=== PATIENT | male | born 1950 | race Caucasian/White ===

== ENCOUNTER → 2016-05-16 | Outpatient (CLI) | payer BC, OTHER ==
[2016-05-16 18:09] LABS: HEMATOCRIT 41.8 % (42-52); MEAN CELL VOLUME 84.8 fL (80-100); MEAN CORPUSCULAR HEMOGLOBIN 28.8 pg (25-34); MEAN PLATELET VOLUME 10.6 fL (7.4-10.4); PLATELET COUNT 233 K/uL (130-400); RED BLOOD COUNT 4.93 M/uL (4.7-6.1); WHITE BLOOD COUNT 7.41 K/uL (4.8-10.8)
[2016-05-16 18:16] LABS: THYROID STIMULATING HORMONE 1.54 uIu/ml (0.300-4.500)
== END | disposition home or self-care (01) ==
LOC: C.LABMFLN 14:18
PROVIDERS: ATTEND Internal Medicine Cardiovascular Disease
DX: E05.00 Thyrotoxicosis with diffuse goiter without thyrotoxic crisis or storm (principal); E55.9 Vitamin D deficiency, unspecified

== ENCOUNTER → 2016-06-15 | Outpatient (CLI) | payer BC ==
[2016-06-15 18:08] LABS: THYROID STIMULATING HORMONE 2.33 uIu/ml (0.300-4.500)
== END | disposition home or self-care (01) ==
LOC: C.LABMFLN 11:49
PROVIDERS: ATTEND Internal Medicine Endocrinology, Diabetes & Metabolism
DX: E05.90 Thyrotoxicosis, unspecified without thyrotoxic crisis or storm (principal)

== ENCOUNTER → 2016-07-17 | Outpatient (CLI) | payer BC ==
[2016-07-17 18:34] LABS: THYROID STIMULATING HORMONE 0.996 uIu/ml (0.300-4.500)
== END | disposition home or self-care (01) ==
LOC: C.LABMFLN 07-18 13:39
PROVIDERS: ATTEND Internal Medicine Endocrinology, Diabetes & Metabolism
DX: E05.90 Thyrotoxicosis, unspecified without thyrotoxic crisis or storm (principal); E55.9 Vitamin D deficiency, unspecified

== ENCOUNTER → 2016-09-11 | Outpatient (CLI) | payer BC ==
[2016-09-11 18:10] LABS: THYROID STIMULATING HORMONE 0.326 uIu/ml (0.300-4.500)
== END | disposition home or self-care (01) ==
LOC: C.LABMFLN 14:49
PROVIDERS: ATTEND Internal Medicine Endocrinology, Diabetes & Metabolism
DX: E05.90 Thyrotoxicosis, unspecified without thyrotoxic crisis or storm (principal); E05.00 Thyrotoxicosis with diffuse goiter without thyrotoxic crisis or storm

== ENCOUNTER → 2016-10-25 | Outpatient (CLI) | payer BC ==
[2016-10-25 17:53] LABS: HEMATOCRIT 42.3 % (42-52); MEAN CELL VOLUME 89.6 fL (80-100); MEAN CORPUSCULAR HEMOGLOBIN 30.1 pg (25-34); MEAN CORPUSCULAR HGB CONC 33.6 g/dl (32-36); MEAN PLATELET VOLUME 10.7 fL (7.4-10.4); PLATELET COUNT 206 K/uL (130-400); RED BLOOD COUNT 4.72 M/uL (4.7-6.1); WHITE BLOOD COUNT 6.45 K/uL (4.8-10.8)
[2016-10-25 19:13] LABS: BLOOD UREA NITROGEN 14 mg/dl (7-18); BUN/CREATININE RATIO 12.8 (10-20); CALCIUM 8.9 mg/dl (8.5-10.1); CARBON DIOXIDE 24 mmol/L (21-32); CHLORIDE 106 mmol/L (98-107); GLUCOSE 88 mg/dl (70-99); SODIUM 140 mmol/L (136-145)
== END | disposition home or self-care (01) ==
LOC: C.LABMFLN 16:06
PROVIDERS: ATTEND Internal Medicine Cardiovascular Disease
DX: E55.9 Vitamin D deficiency, unspecified (principal); M85.80 Other specified disorders of bone density and structure, unspecified site; E05.90 Thyrotoxicosis, unspecified without thyrotoxic crisis or storm; I48.91 Unspecified atrial fibrillation

== ENCOUNTER → 2016-12-29 | Outpatient (CLI) | payer BC ==
[2016-12-29 18:04] LABS: THYROID STIMULATING HORMONE 3.37 uIu/ml (0.300-4.500)
== END | disposition home or self-care (01) ==
LOC: C.LABMFLN 16:38
PROVIDERS: ATTEND Internal Medicine Endocrinology, Diabetes & Metabolism
DX: E05.00 Thyrotoxicosis with diffuse goiter without thyrotoxic crisis or storm (principal); E55.9 Vitamin D deficiency, unspecified

== ENCOUNTER → 2017-01-17 | Outpatient (CLI) | payer BC ==
[~2017-01-17] MED LIST: OPTIRAY 320 IV PRN
--- NOTE | 2017-01-17 13:46 | DIAGNOSTIC IMAGING REPORT ---
ABDOMINAL CT WITH AND WITHOUT INTRAVENOUS CONTRAST HISTORY: Follow-up renal cyst. TECHNIQUE: Multiaxial CT images of the abdomen pelvis performed both before and after the intravenous administration of contrast to evaluate the kidneys. COMPARISON STUDY: Abdomen and pelvis CT 01/21/2016. FINDINGS: There are total of 3 punctate right renal calculi. No left renal calculi. No hydronephrosis. Normal left kidney. Decrease in size in the bilateral exophytic 3.7 x 2.4 cm hypodense lesion within the right kidney. This contains a single calcified septation. There is no definite enhancement identified. Therefore, this favors a cyst. No solid enhancing renal masses identified. Bibasilar linear densities suggesting scarring or atelectasis. The visualized loops of bowel show no wall thickening or obstruction. A few colonic diverticula. The spleen demonstrates a few punctate calcified granulomas. The gallbladder, pancreas, spleen, and adrenal glands are unremarkable. No retroperitoneal lymphadenopathy. IMPRESSION: 1. Decrease in size in a 3.7 x 2.4 cm exophytic hypodense lesion within the right kidney. This contains a single calcified septation. This does not demonstrate significant enhancement and is therefore consistent with a Bosniak category 2 cyst. 2. No solid renal masses identified. 3. Right-sided nephrolithiasis. No hydronephrosis. Electronically signed by: Osmar Canchola M.D. 01/17/2017 1:45 PM Dictated Date/Time: 01/17/2017 1:36 PM
== END | disposition home or self-care (01) ==
LOC: C.CTS 12:45
PROVIDERS: ATTEND Urology
DX: N28.1 Cyst of kidney, acquired (principal); N20.0 Calculus of kidney

== ENCOUNTER → 2017-02-07 | Outpatient (CLI) | payer BC ==
[2017-02-07 18:22] LABS: CALCIUM 8.8 mg/dl (8.5-10.1)
[2017-02-07 18:36] LABS: THYROID STIMULATING HORMONE 1.9 uIu/ml (0.300-4.500)
== END | disposition home or self-care (01) ==
LOC: C.LABMFLN 16:25
PROVIDERS: ATTEND Internal Medicine Endocrinology, Diabetes & Metabolism
DX: E05.90 Thyrotoxicosis, unspecified without thyrotoxic crisis or storm (principal); E55.9 Vitamin D deficiency, unspecified; M85.80 Other specified disorders of bone density and structure, unspecified site

== ENCOUNTER → 2017-03-27 | Outpatient (CLI) | payer BC ==
[2017-03-27 18:01] LABS: CALCIUM 9.2 mg/dl (8.5-10.1)
[2017-03-27 18:22] LABS: CHOLESTEROL/HDL RATIO 2.8; THYROID STIMULATING HORMONE 0.746 uIu/ml (0.300-4.500)
== END | disposition home or self-care (01) ==
LOC: C.LABMFLN 10:41
PROVIDERS: ATTEND Internal Medicine Endocrinology, Diabetes & Metabolism
DX: E05.90 Thyrotoxicosis, unspecified without thyrotoxic crisis or storm (principal); E05.00 Thyrotoxicosis with diffuse goiter without thyrotoxic crisis or storm; E34.9 Endocrine disorder, unspecified; M85.80 Other specified disorders of bone density and structure, unspecified site; E55.9 Vitamin D deficiency, unspecified; E78.5 Hyperlipidemia, unspecified

== ENCOUNTER → 2017-06-07 | Outpatient (CLI) | payer BC | END | disposition home or self-care (01) | LOC: C.LABMFLN 16:02 | PROVIDERS: ATTEND Internal Medicine Endocrinology, Diabetes & Metabolism | DX: E05.00 Thyrotoxicosis with diffuse goiter without thyrotoxic crisis or storm (principal); E55.9 Vitamin D deficiency, unspecified ==

== ENCOUNTER → 2017-08-07 | Outpatient (CLI) | payer BC | END | disposition home or self-care (01) | LOC: C.LABMFLN 16:30 | PROVIDERS: ATTEND Internal Medicine Endocrinology, Diabetes & Metabolism | DX: E05.90 Thyrotoxicosis, unspecified without thyrotoxic crisis or storm (principal); M85.80 Other specified disorders of bone density and structure, unspecified site; E34.9 Endocrine disorder, unspecified ==

== ENCOUNTER → 2017-09-27 | Outpatient (CLI) | payer BC ==
[2017-09-27 17:41] LABS: HEMOGLOBIN 14.2 g/dL (14.0-18.0); MEAN CELL VOLUME 88.2 fL (80-100); MEAN CORPUSCULAR HEMOGLOBIN 30.5 pg (25-34); MEAN CORPUSCULAR HGB CONC 34.6 g/dl (32-36); MEAN PLATELET VOLUME 10.6 fL (7.4-10.4); PLATELET COUNT 172 K/uL (130-400); RED CELL DISTRIBUTION WIDTH CV 13.2 % (11.5-14.5); RED CELL DISTRIBUTION WIDTH SD 42.2 fL (36.4-46.3); WHITE BLOOD COUNT 6.46 K/uL (4.8-10.8)
[2017-09-27 18:08] LABS: BLOOD UREA NITROGEN 10 mg/dl (7-18); CALCIUM 9.2 mg/dl (8.5-10.1); CARBON DIOXIDE 27 mmol/L (21-32); CREATININE 1.13 mg/dl (0.60-1.40); GLUCOSE 91 mg/dl (70-99); SODIUM 139 mmol/L (136-145)
== END | disposition home or self-care (01) ==
LOC: C.LABMFLN 16:31
PROVIDERS: ATTEND Internal Medicine Cardiovascular Disease
DX: I10 Essential (primary) hypertension (principal); Z79.01 Long term (current) use of anticoagulants; I48.91 Unspecified atrial fibrillation

== ENCOUNTER 2024-03-14 11:44 | Inpatient (IN) ==
--- NOTE | 2024-03-14 12:16 | Emergency Department Note ---
History of Present Illness General Chief complaint: Trauma Stated complaint: SYNCOPE, HIT HEAD, BACK PAIN Time Seen by Provider: 03/14/24 12:03 Source: patient, family ( who is at the bedside), RN notes reviewed and old records reviewed (12/25/23-cardiology visit for syncopal episode) Mode of arrival: ambulatory Limitations: no limitations History of Present Illness Maximum Pain Intensity: 8 This patient comes in after having syncopal episode that occurred between 5 and 515 this morning. A trauma alert was called in triage given the fact that he fell and and was on a blood thinner. He is on Eliquis for A-fib. He does not remember what happened. His said he got up he was having a leg cramp as he is gotten before he went into the bathroom and she heard a thud. He was apparently stuck between the toilet and the wall he had his head on the wall. Denies headache. denies neck pain. no change in vision . no focal numbness or weakness .denies chest pain, shortness of breath or abdominal pain . no leg pain at present. He has some low back pain diffusely but denies any numbness or weakness in the buttocks or legs. No fever or chills or recent illness. 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 They thought it was related to his beta-donavan will cut back on this. It was not felt like he needed a pacemaker at the time Home Medications Medication Instructions Recorded Confirmed Type meclizine 25 mg tablet 25 mg PO UD PRN Vertigo 12/20/18 03/14/24 History cyanocobalamin (vitamin B-12) 1,000 mcg PO QAM 02/18/19 03/14/24 History 1,000 mcg tablet folic acid 1 mg tablet 1 mg PO QAM #30 tabs 02/18/19 03/14/24 History cholecalciferol (vitamin D3) 125 125 mcg PO QAM 09/02/20 03/14/24 History mcg (5,000 unit) tablet (Vitamin D3) lisinopril 30 mg tablet 30 mg PO QAM #90 tabs 05/17/23 03/14/24 Rx apixaban 5 mg tablet 5 mg PO BID #180 tabs 05/20/24 11/01/24 Rx hydrochlorothiazide 25 mg tablet 25 mg PO QAM #90 tabs 10/19/23 03/14/24 Rx calcium carbonate (Calcium 600) 600 mg PO DAILY #30 tabs 11/01/23 03/14/24 Rx hydroxyzine HCl 10 mg tablet 10 mg PO TID PRN anxiety #90 tabs 11/02/23 03/14/24 Rx metoprolol tartrate 50 mg tablet 25 mg PO BID 11/19/23 03/14/24 History atorvastatin 10 mg tablet 10 mg PO QAM #90 tabs 01/08/24 03/14/24 Rx sertraline 50 mg tablet (Zoloft) 50 mg PO HS #30 tabs 01/29/24 03/14/24 Rx sulfasalazine 500 mg tablet 2,000 mg PO BID 03/14/24 03/14/24 History Allergies Allergy/AdvReac Type Severity Reaction Status Date / Time azithromycin [From Zithromax] AdvReac Mild Gastrointestinal Verified 03/14/24 15:15 Upset clarithromycin [From Biaxin] AdvReac Mild Gastrointestinal Verified 03/14/24 15:15 Upset gatifloxacin [From Tequin] AdvReac Mild Gastrointestinal Verified 03/14/24 15:15 Upset Past Med/Surg History Problem List (Updated 03/14/24 @ 17:49 by Valentino Hernandez MD) Closed compression fracture of thoracic vertebra (Acute) Trauma (Acute) Syncope (Acute) Tobacco abuse Back pain (Acute) Hydronephrosis of left kidney Syncope and collapse Benign localized prostatic hyperplasia with lower urinary tract symptoms (LUTS) Hyperthyroidism Atrial fibrillation, permanent (Acute) Left nephrolithiasis Vitamin D deficiency Ulcerative colitis (Acute) Osteopenia (Acute) Obstructive sleep apnea (Acute) WILL NOT USE CPAP Hypertension (Acute) Dyslipidemia (Acute) Anticoagulant long-term use (Acute) Medical History Hearing loss Social anxiety disorder Complex renal cyst dx 10/2023, "also when his hydronephrosis showed back up and found current kidney stone," dr. crow did f/u Graves disease Benign positional vertigo Surgical History S/P cystoscopy with ureteral stent placement 2020, w/laser lithotripsy History of tonsillectomy History of thumb surgery History of inguinal hernia repair History of colonoscopy 09/26/21 repeat 2yrs Family History Father Coronary heart disease Hypertension Myocardial infarction Uncle Lung cancer Prostate cancer Mother Skin cancer Breast cancer Grandmother (Paternal) Diabetes Denies family history of Ovarian cancer Colorectal cancer Social History Smoking Status: Current every day smoker Tobacco Type: Pipe Age Started Using Tobacco: 18; Cigarettes Per Day: SMOKES PIPE DAILY; Second Hand Exposure: No; Do You Dip or Chew Tobacco: No; Tobacco Cessation Education Requested by Patient: No Hx Alcohol Use: Yes Alcohol type: beer Alcohol Intake Frequency: Monthly or Less Hx Substance Use: No Preferred Language: Georgian Communication Ability: Effective Visual Impairment: Limited Hearing Ability: Use of Hearing Aid Recreation Program Specialist Required: No Beliefs That Will Affect Care: None marital status: Current Living Situation: Spouse Current Living Situation Comment: lives with current occupational status: employed and retired current occupation: Retired from [employer] May 14 2022 How many Children do You have: 3 Other Information That Helps Us Care for You: No Feels Safe at Home: Yes Safety Concerns: Feels Safe At This Time Childhood Exposure to Second-Hand Smoke: No Diet: regular Diet Comment: regular diet caffeine: Yes (2 cups of coffee daily) during the past year weight has: remained stable Dental Care, Regularly: No Physical Activity Frequency: Daily Physical Activity Frequency Comment: 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, 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 Seatbelt Use: sometimes Sunscreen Use: No Do you think of yourself as: straight/heterosexual Gender Identity: Male Assistive Devices: Cane Review of Systems A total of 10 systems reviewed and were otherwise negative Physical Exam Vital Signs Vital Signs - 24 hr 03/14/24 11:56 03/14/24 12:06 03/14/24 12:06 Temperature 36.6 C 36.8 C 36.8 C Temperature Source Temporal Artery Scan Oral Pulse Rate 62 67 Pulse Rate [Apical] 61 Pulse Rhythm Regular Pulse Rhythm [Apical] Regular Pulse Strength Normal Pulse Strength [Apical] Normal Respiratory Rate 18 26 H 28 H Respiratory Effort / Characteristics Non-Labored Non-Labored Respiratory Depth Normal Normal Respiratory Pattern Regular Regular Blood Pressure 123/73 157/104 H Blood Pressure [Right Arm] 157/104 H Blood Pressure Mean 89 Blood Pressure Mean [Right Arm] 121 Blood Pressure Position [Right Arm] Lying Pulse Oximetry 97 98 98 Oxygen Delivery Method Room Air Room Air Room Air Oxygen Flow Rate 98 Sepsis Recent Fever Within 48 Hours No Sepsis New/Unexplained Change in Mental Status N/A Sepsis Action Taken by Nursing No Action Required 03/14/24 12:11 03/14/24 12:36 03/14/24 13:06 Temperature Temperature Source Pulse Rate 60 68 Pulse Rate [Apical] 70 Pulse Rhythm Regular Pulse Rhythm [Apical] Regular Pulse Strength Pulse Strength [Apical] Normal Respiratory Rate 23 25 H Respiratory Effort / Characteristics Non-Labored Respiratory Depth Normal Respiratory Pattern Blood Pressure Blood Pressure [Right Arm] 119/68 Blood Pressure Mean Blood Pressure Mean [Right Arm] 85 Blood Pressure Position [Right Arm] Lying Pulse Oximetry 96 96 Oxygen Delivery Method Room Air Room Air Oxygen Flow Rate Sepsis Recent Fever Within 48 Hours Sepsis New/Unexplained Change in Mental Status Sepsis Action Taken by Nursing 03/14/24 13:45 03/14/24 15:00 03/14/24 15:00 Temperature Temperature Source Pulse Rate Pulse Rate [Apical] 71 78 78 Pulse Rhythm Pulse Rhythm [Apical] Regular Pulse Strength Pulse Strength [Apical] Normal Respiratory Rate 20 21 21 Respiratory Effort / Characteristics Non-Labored Non-Labored Non-Labored Respiratory Depth Normal Normal Normal Respiratory Pattern Regular Blood Pressure Blood Pressure [Right Arm] 130/75 139/73 139/73 Blood Pressure Mean Blood Pressure Mean [Right Arm] 93 95 95 Blood Pressure Position [Right Arm] Lying Lying Pulse Oximetry 96 98 98 Oxygen Delivery Method Room Air Room Air Room Air Oxygen Flow Rate Sepsis Recent Fever Within 48 Hours Sepsis New/Unexplained Change in Mental Status Sepsis Action Taken by Nursing General: Well developed well nourished older male who appears alert and orient x 3 with a Glascow coma score 15 in no acute distress, breathing comfortably on room air. Normal speech HEENT: Normal cephalic atraumatic. Pupils are equal round and reactive to light. Extraocular movements are intact. Oropharynx is pink with moist mucous membranes. No swelling of the mouth lips or tongue. Neck: Supple with a midline trachea. No meningeal signs or stiffness, no JVD or bruits. No Stridor. Chest: Clear to auscultation bilaterally. No wheezes or rhonchi. No increased work of breathing. Heart: Regular rate and rhythm without murmurs or gallops. Abdomen: Soft nontender, nondistended without rebound guarding or rigidity. Extremities: No cyanosis clubbing or edema. No calf tenderness or assymetry Spine/Back. Mildly tender tender to palpation upper lumbar/lower thoracic spine. No CVA tenderness Skin: Good turgor without rashes. Neurologic exam: Cranial nerves two through 12 are intact. Motor and sensation are intact and symmetrical throughout. Course Administered Medications Discontinued Medications Ioversol (Optiray 320 125ml) 93 ml IV ONCE ONE Stop: 03/14/24 12:43 Last Admin: 03/14/24 12:42 Dose: 93 ml Documented By: CARYN Morphine Sulfate (Morphine Sulfate 2 Mg/Ml Carp) 2 mg IV NOW STA Stop: 03/14/24 13:48 Last Admin: 03/14/24 13:58 Dose: 2 mg Documented By: MIHAELA Ondansetron HCl (Ondansetron Inj 2 Mg/Ml 2 Ml Vial) 4 mg IV NOW STA Stop: 03/14/24 13:48 Last Admin: 03/14/24 13:58 Dose: 4 mg Documented By: MIHAELA Medical Decision Making Differential Diagnosis Traumatic injuries, head injury, syncope, arrhythmia, intra-abdominal injury, spinal injury, PE, anemia, infection Medical Records Attestation: I reviewed the patient's medical records. Home Medications Current Medication List: was personally reviewed by me Laboratory Data Attestation: I reviewed the patient's lab results. 03/14/24 12:14 03/14/24 12:14 Lab Results 03/14/24 03/14/24 03/14/24 Range/Units 12:14 12:21 13:00 WBC 9.77 (4.8-10.8) K/ul RBC 4.62 L (4.70-6.10) M/uL Hgb 13.7 L (14.0-18.0) g/dl POC Hgb 15.0 (14.0-18.0) g/dl Hct 41.1 L (42.0-52.0) % POC Hct 44 (42-52) % MCV 89.0 (80.0-100.0) fL MCH 29.7 (25.0-34.0) pg MCHC 33.3 (32.0-36.0) g/dL RDW Std Deviation 41.7 (36.4-46.3) fL RDW Coeff of Delmi 12.8 (11.5-14.5) % Plt Count 163 (130-400) K/uL MPV 10.7 (9.4-12.4) fL Immature Gran % (Auto) 0.3 % Neut % (Auto) 87.2 % Lymph % (Auto) 7.3 % Davidson % (Auto) 5.0 % Eos % (Auto) 0.1 % Baso % (Auto) 0.1 % Neut # (Auto) 8.52 H (1.40-6.50) K/uL Lymph # (Auto) 0.71 L (1.20-3.40) K/uL Davidson # (Auto) 0.49 (0.11-0.59) K/uL Eos # (Auto) 0.01 (0.00-0.50) K/uL Baso # (Auto) 0.01 (0.00-0.20) K/uL Immature Gran # (Auto) 0.03 (0.01-0.20) K/uL POC Sodium 136 (135-144) mmol/L Sodium 135 L (136-145) mmol/L POC Potassium 4.3 (3.3-5.0) mmol/L Potassium 4.4 (3.5-5.1) mmol/L POC Chloride 99 L (101-112) mmol/L Chloride 100 (98-107) mmol/L Carbon Dioxide 27 (21-32) mmol/L POC Total CO2 26 (24-31) mmol/L Anion Gap 8 (3-11) POC Anion Gap 17.0 (16-25) mmol/L POC BUN 32 H (7-18) mg/dl BUN 35 H (6-23) mg/dl Creatinine 1.57 H (0.6-1.4) mg/dl POC Creatinine 1.6 H (0.6-1.3) mg/dl Est Cr Clr Drug Dosing 48.2 ml/min eGFR 46.83 BUN/Creatinine Ratio 22.3 H (10-20) Glucose 141 H (70-99(Fasting)) mg/dl POC Glucose (other) 144 H (70-99) mg/dl Calcium 9.8 (8.6-10.3) mg/dl POC Ioniz Calcium Matthew 1.23 (1.12-1.32) mmol/l Total Bilirubin 0.5 (0.2-1.0) mg/dl AST 23 (13-39) U/L ALT 10 (7-52) U/L Alkaline Phosphatase 59 (34-104) U/L Troponin I High Sens 21.2 H (0-20) pg/ml Total Protein 8.1 (6.0-8.3) gm/dl Albumin 4.8 (3.4-5.0) gm/dl Globulin 3.3 (2.5-4.0) gm/dl Albumin/Globulin Ratio 1.5 (0.9-2) Urine Color Dark Yellow Urine Appearance Clear (Clear) Urine pH 5.5 (4.5-7.5) Ur Specific [place] 1.044 H (1.000-1.030) Urine Protein Trace H (Negative) Urine Glucose (UA) Negative (Negative) Urine Ketones Trace H (Negative) Urine Blood Negative (Negative) Urine Nitrite Negative (Negative) Urine Bilirubin Negative (Negative) Urine Urobilinogen Negative (Negative) Ur Leukocyte Esterase Trace H (Negative) Urine WBC (Auto) 0-5 (0-5) /hpf Urine RBC (Auto) 0-2 (0-2) /hpf U Hyaline Cast (Auto) 6-10 H (0-2) /lpf U Epithel Cells (Auto) 0-2 (0-2) /hpf Urine Bacteria (Auto) None Seen (None Seen) Hyaline Casts Present A (None Presnt) /lpf 03/14/24 Range/Units 14:08 WBC (4.8-10.8) K/ul RBC (4.70-6.10) M/uL Hgb (14.0-18.0) g/dl POC Hgb (14.0-18.0) g/dl Hct (42.0-52.0) % POC Hct (42-52) % MCV (80.0-100.0) fL MCH (25.0-34.0) pg MCHC (32.0-36.0) g/dL RDW Std Deviation (36.4-46.3) fL RDW Coeff of Delmi (11.5-14.5) % Plt Count (130-400) K/uL MPV (9.4-12.4) fL Immature Gran % (Auto) % Neut % (Auto) % Lymph % (Auto) % Davidson % (Auto) % Eos % (Auto) % Baso % (Auto) % Neut # (Auto) (1.40-6.50) K/uL Lymph # (Auto) (1.20-3.40) K/uL Davidson # (Auto) (0.11-0.59) K/uL Eos # (Auto) (0.00-0.50) K/uL Baso # (Auto) (0.00-0.20) K/uL Immature Gran # (Auto) (0.01-0.20) K/uL POC Sodium (135-144) mmol/L Sodium (136-145) mmol/L POC Potassium (3.3-5.0) mmol/L Potassium (3.5-5.1) mmol/L POC Chloride (101-112) mmol/L Chloride (98-107) mmol/L Carbon Dioxide (21-32) mmol/L POC Total CO2 (24-31) mmol/L Anion Gap (3-11) POC Anion Gap (16-25) mmol/L POC BUN (7-18) mg/dl BUN (6-23) mg/dl Creatinine (0.6-1.4) mg/dl POC Creatinine (0.6-1.3) mg/dl Est Cr Clr Drug Dosing ml/min eGFR BUN/Creatinine Ratio (10-20) Glucose (70-99(Fasting)) mg/dl POC Glucose (other) (70-99) mg/dl Calcium (8.6-10.3) mg/dl POC Ioniz Calcium Matthew (1.12-1.32) mmol/l Total Bilirubin (0.2-1.0) mg/dl AST (13-39) U/L ALT (7-52) U/L Alkaline Phosphatase (34-104) U/L Troponin I High Sens 24.7 H (0-20) pg/ml Total Protein (6.0-8.3) gm/dl Albumin (3.4-5.0) gm/dl Globulin (2.5-4.0) gm/dl Albumin/Globulin Ratio (0.9-2) Urine Color Urine Appearance (Clear) Urine pH (4.5-7.5) Ur Specific [place] (1.000-1.030) Urine Protein (Negative) Urine Glucose (UA) (Negative) Urine Ketones (Negative) Urine Blood (Negative) Urine Nitrite (Negative) Urine Bilirubin (Negative) Urine Urobilinogen (Negative) Ur Leukocyte Esterase (Negative) Urine WBC (Auto) (0-5) /hpf Urine RBC (Auto) (0-2) /hpf U Hyaline Cast (Auto) (0-2) /lpf U Epithel Cells (Auto) (0-2) /hpf Urine Bacteria (Auto) (None Seen) Hyaline Casts (None Presnt) /lpf Imaging Data Attestation: I personally reviewed and interpreted this imaging study as follows: My Impression: Chest x-rayno pneumothorax seen. No trauma medic injury seen Head CTno hemorrhage or mass effect Radiologist's Impression: Abdomen/Pelvis CT 03/14/24 12:11 CT OF THE ABDOMEN AND PELVIS WITH CONTRAST CLINICAL HISTORY: Trauma COMPARISON STUDY: CT of the abdomen and pelvis July 28, 2020. TECHNIQUE: Following IV administration of 93 mL of Optiray, axial images of the abdomen and pelvis were obtained from the lung bases to the proximal femurs. Images were reviewed in the axial, sagittal, and coronal planes. IV contrast was administered without complication. Automated exposure control was utilized for the study. A dose lowering technique was utilized adhering to the principles of ALARA. CT DOSE: 3635.32 mGy.cm FINDINGS: No hemoperitoneum or pneumoperitoneum is present. There is no evidence for traumatic injury to the liver, spleen, adrenal gland, kidneys or pancreas. A partially peripherally calcified 2.3 cm cystic lesion within the right kidney is unchanged. This is benign. There is no hydronephrosis. No evidence for a bowel obstruction. The caliber and wall thickness of small and large bowel are normal. There is colonic diverticulosis without evidence for acute diver tic colitis. There is no lymphadenopathy. There are no fluid collections. No pelvic or hip fractures are identified. No acute fracture of the superior endplate of T12 with 15% loss of vertebral body height. This extends to the anterior cortex. There is possible extension to the posterior cortex. No additional acute fractures are present. IMPRESSION: 1. No evidence for traumatic injury to the solid abdominal viscera. 2. Acute T12 vertebral body fracture with 15% loss of vertebral body height. No retropulsion. No extension into the posterior elements. ACT 112: Negative or not required by law. Electronically signed by: Saúl Flowers M.D. 03/14/2024 1:[address] 03/14/24 12:11 CT cervical spine wo con CLINICAL HISTORY: 73 years-old Male with Trauma. Acute neck trauma status post fall COMPARISON: CT abdomen of same day TECHNIQUE: Multiple axial CT images of the cervical spine were obtained without contrast. A dose lowering technique was utilized adhering to the principles of ALARA. FINDINGS: [id number] posterior intervertebral disc space narrowing at C3- C4 with small posterior disc osteophyte complex. Severe degeneration at C1-C2 anteriorly. Demineralized appearance of the bones. The cervical soft tissues appear unremarkable. The visualized lung apices appear clear. IMPRESSION: No acute cervical spine fracture or subluxation identified. ACT 112: Negative or not required by law. The above report was generated using voice recognition software. It may contain grammatical, syntax or spelling errors. Electronically signed by: Deyvi Yarbrough M.D. 03/14/2024 1:12 PM Chest CTA 03/14/24 12:11 CT ANGIOGRAPHY OF THE CHEST, PULMONARY EMBOLUS PROTOCOL CLINICAL HISTORY: Trauma. Back pain. COMPARISON STUDY: Lung screening CT June 08, 2023. TECHNIQUE: Following IV administration of 93 mL of Optiray, helical axial images of the chest were obtained utilizing the pulmonary embolus protocol. Maximal intensity projections and sagittal and coronal reformats were viewed on an independent 3D workstation. IV contrast was administered without complication. Automated exposure control was utilized for the study. A dose lowering technique was utilized adhering to the principles of ALARA. FINDINGS: There is minimal thoracic aortic opacification on this pulmonary arterial exam. Therefore, the thoracic aorta is suboptimally assessed but there is no evidence for traumatic injury. The heart is moderately enlarged. No mediastinal hematoma is present. There is no pericardial effusion. There is a small hiatal hernia. No pulmonary emboli are identified. There is no pneumothorax or pleural effusion. No airspace opacities are identified. A a few small nodules are unchanged since prior CTA. These are likely benign. No acute rib fractures are present. There is an acute fracture involving the superior endplate and anterior cortex of the T12 vertebral body with 15% loss of vertebral body height. Fracture likely extends to the posterior cortex. There is no extension into the posterior elements. There is no retropulsion. No additional acute thoracic spine fractures are present. IMPRESSION: 1. Acute T12 vertebral body fracture with 15% loss of vertebral body height. Fracture involves the superior endplate and anterior cortex with suspected extension to the posterior cortex. No retropulsion. No extension into the posterior elements. No additional acute fractures within the chest. 2. No additional acute traumatic findings within the chest. 3. No pulmonary emboli identified. ACT 112: Negative or not required by law. Electronically signed by: Saúl Flowers M.D. 03/14/2024 1:20 PM Chest X-Ray 03/14/24 12:11 XR chest 1V portable CLINICAL HISTORY: trauma COMPARISON STUDY: Chest CT June 08, 2023. FINDINGS: Low lung volumes are noted. There is no pneumothorax or pleural effusion. There is moderate cardiomegaly without evidence for pulmonary edema. No consolidation is present. A chondroid lesion within the left humeral neck favors an enchondroma. IMPRESSION: No acute cardiopulmonary findings. Cardiomegaly. ACT 112: Negative or not required by law. Electronically signed by: Saúl Flowers M.D. 03/14/2024 12:[address] 03/14/24 12:11 CT head/brain wo con CLINICAL HISTORY: 73 years-old Male with Trauma. Acute head trauma TECHNIQUE: Multiple axial CT images of the head were obtained without contrast. A dose lowering technique was utilized adhering to the principles of ALARA. COMPARISON: CT cervical spine of same day. FINDINGS: No acute intracranial hemorrhage, midline shift, intra-axial mass, hydrocephalus, territorial ischemia or abnormal extra-axial collection. Possible arachnoid cyst adjacent to left frontal lobe on image 18 series 2 measuring 2 cm. Involutional changes with suggestion of mild chronic microvascular ischemic disease. The calvarium is intact. The paranasal sinuses, mastoid air cells, and middle ear cavities are clear. IMPRESSION: No acute intracranial abnormality or calvarial fracture. ACT 112: Negative or not required by law. The above report was generated using voice recognition software. It may contain grammatical, syntax or spelling errors. Electronically signed by: Deyvi Yarbrough M.D. 03/14/2024 1:00 PM ECG Data Attestation: I personally reviewed and interpreted this ECG as follows: Indication: + weakness Rate (beats per minute): 73 Rhythm: + atrial fibrillation ECG Intervals/blocks: + Normal QRS, + Normal QT and + Normal AL ECG [place]: + Normal ECG Findings: no PACs or no PVCs Comparison ECG Date: from (09/02/20) Change: no significant change MDM Narrative This patient comes in described above. He was brought back as a trauma alert given the fact that he fell and is on Eliquis. He did have a syncopal episode between 5 and 515. He has some lower back pain he is asymptomatic he has no headache he did have leg cramps prior to passing out. I did order a full trauma workup .he has no external signs of trauma to the abdomen or pelvis but does have back pain. I did order CT angiography of the chest rather than just a plain CT given the fact that he had syncopal episode and leg pain and wanted make sure he did not have a PE. He has no neck pain. He was placed on a campus monitor cardiac workup was obtained as well. Trauma scans showed a T12 compression fracture with no retropulsion. There is no evidence of PE or any other injuries. Troponin is mildly elevated at 21. When it was rechecked it was slightly more elevated at 24.7. 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 I do think he needs to be admitted/observed for his syncopal episode and to make sure that he is not having significant arrhythmia or pauses also for treatment of his back pain/injury likely this will be nonoperative with just pain management of the compression fracture. He was given morphine 2 mg IV and Zofran 4 mg IV. The patient and his were happy with the plan. I did consult the [facility] hospitalist to see him in the ER and he was seen in the ER for these measures and will be admitted/observed. Continuous cardiac monitoring: Orders placed in EMR for continuous cardiac monitoring: Upon my evaluation patient noted to be rate controlled A-fib at 70. Impression & Plan Syncope, Anticoagulant long-term use, Atrial fibrillation, permanent, Back pain, Trauma, Closed compression fracture of thoracic vertebra Discharge Plan Visit Data Chief Complaint: Trauma Stated Complaint: SYNCOPE, HIT HEAD, BACK PAIN ED Provider: Valentino Hernandez Discharge Problem: Syncope, Anticoagulant long-term use, Atrial fibrillation, permanent, Back pain, Trauma, Closed compression fracture of thoracic vertebra Patient Disposition: Admitted As Inpatient Discharge Instructions Interventions: ED Discharge Assessment Last Done: 03/14/24 17:03 Discharge Problem: Syncope Qualifiers: Syncope type: unspecified Qualified Code(s): R55 - Syncope and collapse Back pain Qualifiers: Back pain location: low back pain Chronicity: acute Back pain laterality: u nspecified Sciatica presence: unspecified whether sciatica present Qualified Code(s): M54.50 - Low back pain, unspecified Closed compression fracture of thoracic vertebra Qualifiers: Encounter type: initial encounter Qualified Code(s): S22.000A - Wedge compression fracture of unspecified thoracic vertebra, initial encounter for closed fracture
[2024-03-14 12:30] LABS: Basophils # (auto) 0.01 K/uL (0.00-0.20); Basophils % (auto) 0.1 %; Eosinophils # (auto) 0.01 K/uL (0.00-0.50); Eosinophils % (auto) 0.1 %; Hematocrit (blood only) 41.1 % (42.0-52.0); Hemoglobin 13.7 g/dl (14.0-18.0); Immature Granulocytes # (auto) 0.03 K/uL (0.01-0.20); Immature Granulocytes % (auto) 0.3 %; Lymphocytes # (auto) 0.71 K/uL (1.20-3.40); Lymphocytes % (auto) 7.3 %; Mean Corpuscular Hemoglobin 29.7 pg (25.0-34.0); Mean Corpuscular Hgb Conc 33.3 g/dL (32.0-36.0); Mean Platelet Volume 10.7 fL (9.4-12.4); Monocytes # (auto) 0.49 K/uL (0.11-0.59); Neutrophils # (auto) 8.52 K/uL (1.40-6.50); Neutrophils % (auto) 87.2 %; Platelet Count 163 K/uL (130-400); RDW Coefficient of Variation 12.8 % (11.5-14.5); RDW Standard Deviation 41.7 fL (36.4-46.3); Red Blood Count 4.62 M/uL (4.70-6.10); White Blood Count 9.77 K/ul (4.8-10.8)
[2024-03-14 12:33] LABS: iSTAT Creatinine 1.6 mg/dl (0.6-1.3); iSTAT Ionized Calcium 1.23 mmol/l (1.12-1.32); iSTAT Potassium 4.3 mmol/L (3.3-5.0)
--- NOTE | 2024-03-14 12:36 | XRay Report ---
XR chest 1V portable CLINICAL HISTORY: trauma COMPARISON STUDY: Chest CT June 08, 2023. FINDINGS: Low lung volumes are noted. There is no pneumothorax or pleural effusion. There is moderate cardiomegaly without evidence for pulmonary edema. No consolidation is present. A chondroid lesion w ithin the left humeral neck favors an enchondroma. IMPRESSION: No acute cardiopulmonary findings. Cardiomegaly. ACT 112: Negative or not required by law. Electronically signed by: Saúl Flowers M.D. 03/14/2024 12:35 PM
[2024-03-14] MEDS: OPTIRAY 320 125ml IV ONE (12:42)
[2024-03-14 13:02] LABS: Albumin Globulin Ratio 1.5 (0.9-2); Albumin Level 4.8 gm/dl (3.4-5.0); BUN Creatinine Ratio 22.3 (10-20); Bilirubin,Total 0.5 mg/dl (0.2-1.0); Calcium 9.8 mg/dl (8.6-10.3); Creatinine Clr Calc Pharmacy 48.2 ml/min; Globulin 3.3 gm/dl (2.5-4.0); Potassium 4.4 mmol/L (3.5-5.1); Total Protein 8.1 gm/dl (6.0-8.3)
--- NOTE | 2024-03-14 13:02 | CT Scan Report ---
CT head/brain wo con CLINICAL HISTORY: 73 years-old Male with Trauma. Acute head trauma TECHNIQUE: Multiple axial CT images of the head were obtained without contrast. A dose lowering tech nique was utilized adhering to the principles of ALARA. COMPARISON: CT cervical spine of same day. FINDINGS: No acute intracranial hemorrhage, midline shift, intra-axial mass, hydrocephalus, territorial ischemi a or abnormal extra-axial collection. Possible arachnoid cyst adjacent to left frontal lobe on image 18 series 2 measuring 2 cm. Involutional changes with suggestion of mild chronic microvascular ischem ic disease. The calvarium is intact. The paranasal sinuses, mastoid air cells, and middle ear caviti es are clear. IMPRESSION: No acute intracranial abnormality or calvarial fracture. ACT 112: Negative or not required by law. The above report was generated using voice recognition software. It may contain grammatical, syntax o r spelling errors. Electronically signed by: Deyvi Yarbrough M.D. 03/14/2024 1:00 PM
[2024-03-14 13:08] LABS: Troponin I High Sensitivity 21.2 pg/ml (0-20)
--- NOTE | 2024-03-14 13:14 | CT Scan Report ---
CT cervical spine wo con CLINICAL HISTORY: 73 years-old Male with Trauma. Acute neck trauma status post fall COMPARISON: CT abdomen of same day TECHNIQUE: Multiple axial CT images of the cervical spine were obtained without contrast. A dose low ering technique was utilized adhering to the principles of ALARA. FINDINGS: [id number] posterior intervertebral disc space narrowing at C3-C4 with small posterio r disc osteophyte complex. Severe degeneration at C1-C2 anteriorly. Demineralized appearance of the b ones. The cervical soft tissues appear unremarkable. The visualized lung apices appear clear. IMPRESSION: No acute cervical spine fracture or subluxation identified. ACT 112: Negative or not required by law. The above report was generated using voice recognition software. It may contain grammatical, syntax o r spelling errors. Electronically signed by: Deyvi Yarbrough M.D. 03/14/2024 1:12 PM
--- NOTE | 2024-03-14 13:22 | CT Scan Report ---
CT ANGIOGRAPHY OF THE CHEST, PULMONARY EMBOLUS PROTOCOL CLINICAL HISTORY: Trauma. Back pain. COMPARISON STUDY: Lung screening CT June 08, 2023. TECHNIQUE: Following IV administration of 93 mL of Optiray, helical axial images of the chest were ob tained utilizing the pulmonary embolus protocol. Maximal intensity projections and sagittal and jorge nal reformats were viewed on an independent 3D workstation. IV contrast was administered without com plication. Automated exposure control was utilized for the study. A dose lowering technique was uti lized adhering to the principles of ALARA. FINDINGS: There is minimal thoracic aortic opacification on this pulmonary arterial exam. Therefore, the thoracic aorta is suboptimally assessed but there is no evidence for traumatic injury. The heart is moderately enlarged. No mediastinal hematoma is present. There is no pericardial effusion. There is a small hiatal hernia. No pulmonary emboli are identified. There is no pneumothorax or pleural eff usion. No airspace opacities are identified. A a few small nodules are unchanged since prior CTA. The se are likely benign. No acute rib fractures are present. There is an acute fracture involving the goodrich perior endplate and anterior cortex of the T12 vertebral body with 15% loss of vertebral body height. Fracture likely extends to the posterior cortex. There is no extension into the posterior elements. There is no retropulsion. No additional acute thoracic spine fractures are present. IMPRESSION: 1. Acute T12 vertebral body fracture with 15% loss of vertebral body height. Fracture involves the goodrich perior endplate and anterior cortex with suspected extension to the posterior cortex. No retropulsion . No extension into the posterior elements. No additional acute fractures within the chest. 2. No additional acute traumatic findings within the chest. 3. No pulmonary emboli identified. ACT 112: Negative or not required by law. Electronically signed by: Saúl Flowers M.D. 03/14/2024 1:20 PM
[2024-03-14 13:25] LABS: Appearance Urine Clear (Clear); Bacteria Urine Automated None Seen (None Seen); Bilirubin Urine Negative (Negative); Blood Urine Negative (Negative); Color Urine Dark Yellow; Epithelial Cell Urine Auto 0-2 /hpf (0-2); Glucose Urine UA Negative (Negative); Hyaline Casts Urine Present /lpf (None Presnt); Ketones Urine Trace (Negative); Leukocyte Esterase Urine Trace (Negative); Nitrite Urine Negative (Negative); Protein Urine Trace (Negative); RBC Urine Automated 0-2 /hpf (0-2); Specific Gravity Urine 1.044 (1.000-1.030); Urobilinogen Urine Negative (Negative); WBC Urine Automated 0-5 /hpf (0-5); pH Urine 5.5 (4.5-7.5)
--- NOTE | 2024-03-14 13:27 | CT Scan Report ---
CT OF THE ABDOMEN AND PELVIS WITH CONTRAST CLINICAL HISTORY: Trauma COMPARISON STUDY: CT of the abdomen and pelvis July 28, 2020. TECHNIQUE: Following IV administration of 93 mL of Optiray, axial images of the abdomen and pelvis we re obtained from the lung bases to the proximal femurs. Images were reviewed in the axial, sagittal, and coronal planes. IV contrast was administered without complication. Automated exposure control wa s utilized for the study. A dose lowering technique was utilized adhering to the principles of ALARA . CT DOSE: 3635.32 mGy.cm FINDINGS: No hemoperitoneum or pneumoperitoneum is present. There is no evidence for traumatic injury to the liver, spleen, adrenal gland, kidneys or pancreas. A partially peripherally calcified 2.3 cm cystic lesion within the right kidney is unchanged. This is benign. There is no hydronephrosis. No ev idence for a bowel obstruction. The caliber and wall thickness of small and large bowel are normal. T here is colonic diverticulosis without evidence for acute diver tic colitis. There is no lymphadenopa thy. There are no fluid collections. No pelvic or hip fractures are identified. No acute fracture of the superior endplate of T12 with 15% loss of vertebral body height. This extends to the anterior cor michelle. There is possible extension to the posterior cortex. No additional acute fractures are present. IMPRESSION: 1. No evidence for traumatic injury to the solid abdominal viscera. 2. Acute T12 vertebral body fracture with 15% loss of vertebral body height. No retropulsion. No exte nsion into the posterior elements. ACT 112: Negative or not required by law. Electronically signed by: Saúl Flowers M.D. 03/14/2024 1:25 PM
[2024-03-14] MEDS: ONDANSETRON INJ 2 MG/ML 2 ML VIAL IV STA (13:58)
[2024-03-14] MEDS: MoRPHine SULFATE 2 MG/ML CARP IV STA (13:58)
--- NOTE | 2024-03-14 14:43 | History & Physical Report ---
Date of Service March 14, 2024 Assessment & Plan (1) Syncope and collapse: Plan: H/o of syncopal episode October 22, 2023, negative workup. Recurred today 03/14; had a cramp in LLE, massaged it, walked to the bathroom and had syncopal episode. - Admit - Concern for orthostasis and on multiple meds for BP; massages leg then walks; ? standing upright too quickly - CBC-WBC 9.77, H&H 13.7/41.1; CMP- Na 135 (corrected 136), Cl 99, creatinine 1.57, BUN 35, eGFR 46.3 - Troponin 24.7-> pending repeat; no chest pain, EKG without ischemic changes - CXR, CTAP, CTA chest, head CT without acute finding other than T12 vertebral body fracture. No evidence of PE - On meclizine 25mg prn for vertigo; did not take - Most recent Echo 11/02/2023- EF 60 to 65%, moderate concentric left ventricle hypertrophy, mild biatrial dilation, mild to moderate MR, mild-moderate TR, estimated normal RVSP 27 mmHg, A-fib. - On metoprolol titrate 25 p.o. twice daily with heart rate 78 currently; continue - Hold lisinopril + HCTZ - Pending Mg - Pending repeat echo - Pending orthostatic vitals for am (2) Back pain: Plan: 2/2 syncopal event and fall - Imaging reveals T12 vertebral body fracture with 50% loss of height - Pain management plan: acetaminophen po q8hr and morphine prn - No neurological symptoms (3) Atrial fibrillation, permanent: Plan: H/o A-fib, on Eliquis; follows with cardiology [facility] - Metoprolol tartrate 25 mg p.o. twice daily - EKG: Afib, rate in 70s - No symptoms with A-fib (4) Ulcerative colitis: Plan: Follows with GI - Sulfasalazine 2 g p.o. twice daily (5) Graves disease: Plan: Follows with endocrinology -Most recent (01/08) TSH 2.353 - Pending repeat (6) Tobacco abuse: Plan: Smoking nicotine > 60 years - 3-5 times a day x 6 years - Most recent outpatient chest CT 10/2023 showed no nodules, small granuloma - Nicoderm patch Plan Dyslipidemia- atorvastatin 10 mg; ? leading to cramping in calves HTN- Hold HCTZ 25 mg, lisinopril 30 mg CECI- refuses to wear CPAP Depression/anxiety- sertraline 50 mg, hydroxyzine 10 mg 3 times daily as needed for anxiety BPH- W/o LUTS currently; UA unremarkable for infection Dispo: Admit VTE prophylaxis: SCDs, on Eliquis at home; no evidence of bleed at this time; continue Code: Full Admission and Anticipated Discharge Date Admission Date: 03/14/2024 History of Present Illness Chief Complaint: Syncopal event Primary Care Provider: Jane Daigle DO 73-year-old male presenting via private vehicle after a syncopal event at his home. He is on Eliquis for A-fib. Found to have T12 vertebral body fracture. ED course: CBC-WBC 9.77, H&H 13.7/41.1; CMP- Na 135 (corrected 136), glucose 141, chloride 99, creatinine 1.57, BUN 35, GFR 46.83; troponin 24.7; UA without signs of infection; CTAP T12 vertebral body fracture with 60% loss of height, otherwise unremarkable, which correlates with findings on chest x-ray, head CT and CTA chest. EKG shows A-fib at 73 bpm. Patient is 73-year-old male presenting for syncopal episode. Patient presents with his who helps to provide most of the history. Patient's states that this a.m. between [id number] the patient had a cramp in his left leg that he massaged out, then moments later he walked to the bathroom and she heard a thud. She witnessed the patient on the floor of the bathroom with his head propped up against the wall. She notes that the patient did not have any involuntary movements and did not lose control of bowel or bladder. Patient awoke within moments, and then took a nap after this incident prior to coming to the ED. He states the only thing he remembers is feeling as though his vision was darkening and then he woke up on the ground. Denies chest pain, shortness of breath, abdo lucille pain, sweating, or additional symptoms prior to the event. No postictal state following awakening. His also informs me that an illness identical event had happened to the patient on October 22, 2023. States that he had a cramp in his right leg, massaged it out, and then walked to the restroom where he then passed out and woke up on the floor moments later. States that he had a complete workup from hospitality intern, PCP, and neurologist. Changes that were made after this event included a decrease in his metoprolol. His neurologist completed 2 separate EEGs both of which were negative for seizure. His hospitality intern had him wear a Holter monitor which did not fruit picker episodes of arrhythmias. Additionally he did not have another episode until today. Denies current fever/chills, chest pain, shortness of breath, palpitations, abdominal pain, N/V/D/C, numbness or tingling, headache, vision changes, or swelling of the extremities. Only complaint at this time is that he is having b ack pain near the area of the fracture and neck stiffness because of the hospital bed. Please see Dr. Peña's attestation for adjustments/additions to treatment plan. Allergies Allergy/AdvReac Type Severity Reaction Status Date / Time azithromycin [From Zithromax] AdvReac Mild Gastrointestinal Verified 03/14/24 15:15 Upset clarithromycin [From Biaxin] AdvReac Mild Gastrointestinal Verified 03/14/24 15:15 Upset gatifloxacin [From Tequin] AdvReac Mild Gastrointestinal Verified 03/14/24 15:15 Upset Home Medications Medication Instructions Recorded Confirmed Type meclizine 25 mg tablet 25 mg PO UD PRN Vertigo 12/20/18 03/14/24 History cyanocobalamin (vitamin B-12) 1,000 mcg PO QAM 02/18/19 03/14/24 History 1,000 mcg tablet folic acid 1 mg tablet 1 mg PO QAM #30 tabs 02/18/19 03/14/24 History cholecalciferol (vitamin D3) 125 125 mcg PO QAM 09/02/20 03/14/24 History mcg (5,000 unit) tablet (Vitamin D3) lisinopril 30 mg tablet 30 mg PO QAM #90 tabs 05/17/23 03/14/24 Rx apixaban 5 mg tablet 5 mg PO BID #180 tabs 10/01/23 03/14/24 Rx hydrochlorothiazide 25 mg tablet 25 mg PO QAM #90 tabs 10/19/23 03/14/24 Rx calcium carbonate (Calcium 600) 600 mg PO DAILY #30 tabs 11/01/23 03/14/24 Rx hydroxyzine HCl 10 mg tablet 10 mg PO TID PRN anxiety #90 tabs 11/02/23 03/14/24 Rx metoprolol tartrate 50 mg tablet 25 mg PO BID 11/19/23 03/14/24 History atorvastatin 10 mg tablet 10 mg PO QAM #90 tabs 01/08/24 03/14/24 Rx sertraline 50 mg tablet (Zoloft) 50 mg PO HS #30 tabs 01/29/24 03/14/24 Rx sulfasalazine 500 mg tablet 2,000 mg PO BID 03/14/24 03/14/24 History oxycodone 5 mg tablet 5 mg PO Q4H PRN pain #10 tabs 03/15/24 Rx Past Med/Surg History Problem List (Updated 03/14/24 @ 17:49 by Valentino Hernandez MD) Closed compression fracture of thoracic vertebra (Acute) Trauma (Acute) Syncope (Acute) Tobacco abuse Back pain (Acute) Hydronephrosis of left kidney Syncope and collapse Benign localized prostatic hyperplasia with lower urinary tract symptoms (LUTS) Hyperthyroidism Atrial fibrillation, permanent (Acute) Left nephrolithiasis Vitamin D deficiency Ulcerative colitis (Acute) Osteopenia (Acute) Obstructive sleep apnea (Acute) WILL NOT USE CPAP Hypertension (Acute) Dyslipidemia (Acute) Anticoagulant long-term use (Acute) Medical History Hearing loss Social anxiety disorder Complex renal cyst dx 10/2023, "also when his hydronephrosis showed back up and found current kidney stone," dr. crow did f/u Graves disease Benign positional vertigo Surgical History S/P cystoscopy with ureteral stent placement 2020, w/laser lithotripsy History of tonsillectomy History of thumb surgery History of inguinal hernia repair History of colonoscopy 09/26/21 repeat 2yrs Family History Father Coronary heart disease Hypertension Myocardial infarction Uncle Lung cancer Prostate cancer Mother Skin cancer Breast cancer Grandmother (Paternal) Diabetes Denies family history of Ovarian cancer Colorectal cancer Social History Smoking Status: Current every day smoker Tobacco Type: Pipe Age Started Using Tobacco: 18; Cigarettes Per Day: SMOKES PIPE DAILY; Second Hand Exposure: No; Do You Dip or Chew Tobacco: No; Hx Alcohol Use: Yes Alcohol type: beer Alcohol Intake Frequency: Monthly or Less Hx Substance Use: No Preferred Language: [place] Citizen Communication Ability: Effective Visual Impairment: Limited Hearing Ability: Use of Hearing Aid Hand Shoes Sewer Required: No Beliefs That Will Affect Care: None marital status: Current Living Situation: Spouse Current Living Situation Comment: lives with current occupational status: employed and retired current occupation: Retired from [employer] May 14 2022 How many Children do You have: 3 Feels Safe at Home: Yes Childhood Exposure to Second-Hand Smoke: No Diet: regular Diet Comment: regular diet caffeine: Yes (2 cups of coffee daily) during the past year weight has: remained stable Dental Care, Regularly: No Physical Activity Frequency: Daily Physical Activity Frequency Comment: 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, 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 Seatbelt Use: sometimes Sunscreen Use: No Do you think of yourself as: straight/heterosexual Gender Identity: Male Assistive Devices: Cane Review of Systems Review of Systems: All systems reviewed & are unremarkable except as noted in Subjective Physical Exam Physical Exam: General: No acute distress Skin: Warm and dry, without rashes or lesions Head: Normocephalic, atraumatic Eyes: PERRL, conjunctivae clear, sclera non-icteric; EOM intact ENT: External ear and ear canal without swelling; nose atraumatic; tongue normal appearance, pharynx normal without tonsillar swelling or exudate Neck: Supple, no LAD; no JVD Cardio: Regular rate, irregularly irregular rhythm, no M/G/R, S1 and S2 normal Resp: Chest wall symmetric, normal respiratory effort; No respiratory distress, Lungs CTA in all lobes bilaterally, no wheezes, rales, or rhonchi Abdomen: Soft, symmetric, nontender; no distention; No masses or hepatosplenomegaly MSK: No deformities, full ROM throughout; sensation normal to UE/LE; pulses palpable and equal; no edema. Neuro: Awake, alert; Muscle strength 5/5 bilaterally in UE/LE; Sensation intact bilaterally; CN intact Psych: Appropriate mood and affect is present in room at time of visit. Results & Data Results & Data Vital Signs (Past 12 Hours) Vital Signs Temp Pulse Pulse Resp BP BP Pulse Ox 03/14/24 13:45 71 20 130/75 96 03/14/24 13:06 70 25 H 119/68 96 03/14/24 12:36 68 03/14/24 12:11 60 23 96 03/14/24 12:06 36.8 C 61 28 H 157/104 H 98 03/14/24 12:06 36.8 C 67 26 H 157/104 H 98 03/14/24 11:56 36.6 C 62 18 123/73 97 O2 Del Method O2 Flow Rate 03/14/24 13:45 Room Air 03/14/24 13:06 Room Air 03/14/24 12:36 03/14/24 12:11 Room Air 03/14/24 12:06 Room Air 03/14/24 12:06 Room Air 98 03/14/24 11:56 Room Air Laboratory Results 03/14/24 03/14/24 03/14/24 14:08 13:00 12:21 WBC RBC Hgb POC Hgb 15.0 Hct POC Hct 44 MCV MCH MCHC RDW Std Deviation RDW Coeff of Delmi Plt Count MPV Immature Gran % (Auto) Neut % (Auto) Lymph % (Auto) Antelope % (Auto) Eos % (Auto) Baso % (Auto) Neut # (Auto) Lymph # (Auto) Antelope # (Auto) Eos # (Auto) Baso # (Auto) Immature Gran # (Auto) POC Sodium 136 Sodium POC Potassium 4.3 Potassium POC Chloride 99 L Chloride Carbon Dioxide POC Total CO2 26 Anion Gap POC Anion Gap 17.0 POC BUN 32 H BUN Creatinine POC Creatinine 1.6 H Est Cr Clr Drug Dosing eGFR BUN/Creatinine Ratio Glucose POC Glucose (other) 144 H Calcium POC Ioniz Calcium Matthew 1.23 Total Bilirubin AST ALT Alkaline Phosphatase Troponin I High Sens 24.7 H Total Protein Albumin Globulin Albumin/Globulin Ratio Urine Color Dark Yellow Urine Appearance Clear Urine pH 5.5 Ur Specific Henderson 1.044 H Urine Protein Trace H Urine Glucose (UA) Negative Urine Ketones Trace H Urine Blood Negative Urine Nitrite Negative Urine Bilirubin Negative Urine Urobilinogen Negative Ur Leukocyte Esterase Trace H Urine WBC (Auto) 0-5 Urine RBC (Auto) 0-2 U Hyaline Cast (Auto) 6-10 H U Epithel Cells (Auto) 0-2 Urine Bacteria (Auto) None Seen Hyaline Casts Present A 03/14/24 12:14 WBC 9.77 RBC 4.62 L Hgb 13.7 L POC Hgb Hct 41.1 L POC Hct MCV 89.0 MCH 29.7 MCHC 33.3 RDW Std Deviation 41.7 RDW Coeff of Delmi 12.8 Plt Count 163 MPV 10.7 Immature Gran % (Auto) 0.3 Neut % (Auto) 87.2 Lymph % (Auto) 7.3 Antelope % (Auto) 5.0 Eos % (Auto) 0.1 Baso % (Auto) 0.1 Neut # (Auto) 8.52 H Lymph # (Auto) 0.71 L Antelope # (Auto) 0.49 Eos # (Auto) 0.01 Baso # (Auto) 0.01 Immature Gran # (Auto) 0.03 POC Sodium Sodium 135 L POC Potassium Potassium 4.4 POC Chloride Chloride 100 Carbon Dioxide 27 POC Total CO2 Anion Gap 8 POC Anion Gap POC BUN BUN 35 H Creatinine 1.57 H POC Creatinine Est Cr Clr Drug Dosing 48.2 eGFR 46.83 BUN/Creatinine Ratio 22.3 H Glucose 141 H POC Glucose (other) Calcium 9.8 POC Ioniz Calcium Matthew Total Bilirubin 0.5 AST 23 ALT 10 Alkaline Phosphatase 59 Troponin I High Sens 21.2 H Total Protein 8.1 Albumin 4.8 Globulin 3.3 Albumin/Globulin Ratio 1.5 Urine Color Urine Appearance Urine pH Ur Specific Henderson Urine Protein Urine Glucose (UA) Urine Ketones Urine Blood Urine Nitrite Urine Bilirubin Urine Urobilinogen Ur Leukocyte Esterase Urine WBC (Auto) Urine RBC (Auto) U Hyaline Cast (Auto) U Epithel Cells (Auto) Urine Bacteria (Auto) Hyaline Casts Diagnostic Findings Abdomen/Pelvis CT 03/14/24 12:11 CT OF THE ABDOMEN AND PELVIS WITH CONTRAST CLINICAL HISTORY: Trauma COMPARISON STUDY: CT of the abdomen and pelvis July 28, 2020. TECHNIQUE: Following IV administration of 93 mL of Optiray, axial images of the abdomen and pelvis were obtained from the lung bases to the proximal femurs. Images were reviewed in the axial, sagittal, and coronal planes. IV contrast was administered without complication. Automated exposure control was utilized for the study. A dose lowering technique was utilized adhering to the principles of ALARA. CT DOSE: 3635.32 mGy.cm FINDINGS: No hemoperitoneum or pneumoperitoneum is present. There is no evidence for traumatic injury to the liver, spleen, adrenal gland, kidneys or pancreas. A partially peripherally calcified 2.3 cm cystic lesion within the right kidney is unchanged. This is benign. There is no hydronephrosis. No evidence for a bowel obstruction. The caliber and wall thickness of small and large bowel are normal. There is colonic diverticulosis without evidence for acute diver tic colitis. There is no lymphadenopathy. There are no fluid collections. No pelvic or hip fractures are identified. No acute fracture of the superior endplate of T12 with 15% loss of vertebral body height. This extends to the anterior cortex. There is possible extension to the posterior cortex. No additional acute fractures are present. IMPRESSION: 1. No evidence for traumatic injury to the solid abdominal viscera. 2. Acute T12 vertebral body fracture with 15% loss of vertebral body height. No retropulsion. No extension into the posterior elements. ACT 112: Negative or not required by law. Electronically signed by: Saúl Flowers M.D. 03/14/2024 1:[address] 03/14/24 12:11 CT cervical spine wo con CLINICAL HISTORY: 73 years-old Male with Trauma. Acute neck trauma status post fall COMPARISON: CT abdomen of same day TECHNIQUE: Multiple axial CT images of the cervical spine were obtained without contrast. A dose lowering technique was utilized adhering to the principles of ALARA. FINDINGS: [id number] posterior intervertebral disc space narrowing at C3- C4 with small posterior disc osteophyte complex. Severe degeneration at C1-C2 anteriorly. Demineralized appearance of the bones. The cervical soft tissues appear unremarkable. The visualized lung apices appear clear. IMPRESSION: No acute cervical spine fracture or subluxation identified. ACT 112: Negative or not required by law. The above report was generated using voice recognition software. It may contain grammatical, syntax or spelling errors. Electronically signed by: Deyvi Yarbrough M.D. 03/14/2024 1:12 PM Chest CTA 03/14/24 12:11 CT ANGIOGRAPHY OF THE CHEST, PULMONARY EMBOLUS PROTOCOL CLINICAL HISTORY: Trauma. Back pain. COMPARISON STUDY: Lung screening CT June 08, 2023. TECHNIQUE: Following IV administration of 93 mL of Optiray, helical axial images of the chest were obtained utilizing the pulmonary embolus protocol. Maximal intensity projections and sagittal and coronal reformats were viewed on an independent 3D workstation. IV contrast was administered without complication. Automated exposure control was utilized for the study. A dose lowering technique was utilized adhering to the principles of ALARA. FINDINGS: There is minimal thoracic aortic opacification on this pulmonary arterial exam. Therefore, the thoracic aorta is suboptimally assessed but there is no evidence for traumatic injury. The heart is moderately enlarged. No mediastinal hematoma is present. There is no pericardial effusion. There is a small hiatal hernia. No pulmonary emboli are identified. There is no pneumothorax or pleural effusion. No airspace opacities are identified. A a few small nodules are unchanged since prior CTA. These are likely benign. No acute rib fractures are present. There is an acute fracture involving the superior endplate and anterior cortex of the T12 vertebral body with 15% loss of vertebral body height. Fracture likely extends to the posterior cortex. There is no extension into the posterior elements. There is no retropulsion. No additional acute thoracic spine fractures are present. IMPRESSION: 1. Acute T12 vertebral body fracture with 15% loss of vertebral body height. Fracture involves the superior endplate and anterior cortex with suspected extension to the posterior cortex. No retropulsion. No extension into the posterior elements. No additional acute fractures within the chest. 2. No additional acute traumatic findings within the chest. 3. No pulmonary emboli identified. ACT 112: Negative or not required by law. Electronically signed by: Saúl Flowers M.D. 03/14/2024 1:20 PM Chest X-Ray 03/14/24 12:11 XR chest 1V portable CLINICAL HISTORY: trauma COMPARISON STUDY: Chest CT June 08, 2023. FINDINGS: Low lung volumes are noted. There is no pneumothorax or pleural effusion. There is moderate cardiomegaly without evidence for pulmonary edema. No consolidation is present. A chondroid lesion within the left humeral neck favors an enchondroma. IMPRESSION: No acute cardiopulmonary findings. Cardiomegaly. ACT 112: Negative or not required by law. Electronically signed by: Saúl Flowers M.D. 03/14/2024 12:[address] 03/14/24 12:11 CT head/brain wo con CLINICAL HISTORY: 73 years-old Male with Trauma. Acute head trauma TECHNIQUE: Multiple axial CT images of the head were obtained without contrast. A dose lowering technique was utilized adhering to the principles of ALARA. COMPARISON: CT cervical spine of same day. FINDINGS: No acute intracranial hemorrhage, midline shift, intra-axial mass, hydrocephalus, territorial ischemia or abnormal extra-axial collection. Possible arachnoid cyst adjacent to left frontal lobe on image 18 series 2 measuring 2 cm. Involutional changes with suggestion of mild chronic microvascular ischemic disease. The calvarium is intact. The paranasal sinuses, mastoid air cells, and middle ear cavities are clear. IMPRESSION: No acute intracranial abnormality or calvarial fracture. ACT 112: Negative or not required by law. The above report was generated using voice recognition software. It may contain grammatical, syntax or spelling errors. Electronically signed by: Deyvi Yarbrough M.D. 03/14/2024 1:00 PM ECG Additional Comments: A-fib, LAD, low voltage QRS 73 bpm, QRS 94, QT/QTc 378/416 Code Status & VTE Plan Code Status Full Supervising Physician Co-Signing Physician Notes I personally saw and examined the patient. I independently reviewed the labs, EKG, imaging, problem list, medication list, past medical history and family history. I verified all carter points and agree with Elian Khan PA-C with the following exceptions and/or additions: 73 year old male presents to the ER with syncopal episode. T12 fracture on imaging. O/E HS regular rate, irregular rhythm, Chest CTAB, Abdo SNT, central spinal tenderness around T12 A/P Syncope - suspected orthostasis, hold HCTZ and lisinopril T12 fracture - lidocaine patch, calcitonin nasal spray, acetaminophen 1g TID, oxycodone 2nd line, Dilaudid third line PG Care Time/CCT Total # of Minutes Spent Total Time Spent with Patient: Total time spent is greater than 50% in coordination of care (as documented) at patient's floor/unit and/or counseling patient: Coding Level of Care Code 65228 INT INP/OBS CARE 3/75MIN Diagnoses Syncope and collapse R55 Back pain M54.9 Atrial fibrillation, permanent I48.21 Ulcerative colitis K51.90 Graves disease E05.00 Tobacco abuse Z72.0 Time Spent (min) 80
[2024-03-14] MEDS ORDERED: MoRPHine SULFATE 2 MG/ML CARP IV PRN (17:20)
[2024-03-14] MEDS ORDERED: hydrOXYzine HCl 10 MG TAB PO PRN (17:20)
[2024-03-14] MEDS: NICOTINE 14 MG/24 HR PATCH TD SCH (17:55)
--- NOTE | 2024-03-14 17:58 | Electrocardiogram Report ---
Test Reason : Blood Pressure : */* mmHG Vent. Rate : 73 BPM Atrial Rate : * BPM P-R Int : * ms QRS Dur : 94 ms QT Int : 378 ms P-R-T Axes : * -68 35 degrees QTcB Int : 416 ms Atrial fibrillation Left axis deviation Low voltage QRS Inferior infarct , age undetermined Poor R wave progression, consider anterior SD vs. lead placement vs. LVH Abnormal ECG When compared with ECG of 02-Sep-2020 15:34, Inferior infarct is now Present Confirmed by Fox Olsen ([id number]) on 03/14/2024 5:58:16 PM Referred By: REFERRED SELF Confirmed By: Fox Olsen
[2024-03-14] MEDS: MoRPHine SULFATE 2 MG/ML CARP IV PRN (18:10)
[2024-03-14] MEDS: sulfaSALAzine 500 MG TABLET PO SCH (18:11)
[2024-03-14] MEDS: METOPROLOL TARTRATE 25 MG TAB PO SCH (21:05)
[2024-03-14] MEDS: SERTRALINE HCL 50 MG TABLET PO SCH (21:05)
[2024-03-14] MEDS: ACETAMINOPHEN 500 MG TAB PO SCH (21:05)
[2024-03-14] MEDS: APIXABAN 5 MG TABLET PO SCH (21:05)
[2024-03-14] MEDS ORDERED: HYDROmorphone INJ 0.5 MG/0.5 ML SYR IV PRN ×2 (21:41)
[2024-03-14] MEDS ORDERED: oxyCODONE HCL IR 5 MG TAB (IMMEDIATE RELEASE) PO PRN ×2 (21:41)
[2024-03-15 08:18] VITALS: RESP 20; TEMP 98.2
[2024-03-15 09:06] LABS: Magnesium 1.7 mg/dl (1.7-2.4)
[2024-03-15] MEDS: ATORVASTATIN 10 MG TAB PO SCH (09:18)
[2024-03-15] MEDS: CALCITONIN SALMON NA 200 IU/AC 3.7 ML BTL SCH (09:21)
[2024-03-15 09:22] LABS: Thyroid Stimulating Hormone 0.461 uIu/ml (0.300-4.500)
[2024-03-15] MEDS: LIDOCAINE 5% 1 PATCH TD SCH (09:22)
--- NOTE | 2024-03-15 10:44 | Hospitalist Progress Note ---
Date of Service March 15, 2024 Assessment & Plan (1) Syncope and collapse: Plan: Appears to be orthostatic in nature. Lisinopril and hydrochlorothiazide are temporarily on hold. He is anxious to go home (2) Back pain: Plan: Acute T12 compression fracture. The patient has minimal symptoms at this time. This will eventually heal on its own. No treatment necessary at this time. (3) Atrial fibrillation, permanent: Plan: H/o A-fib, on Eliquis. Rate controlled with metoprolol tartrate. Follows with cardiology Dionna Tellez (4) Ulcerative colitis: Plan: Stable. Continue sulfasalazine (5) Graves disease: Plan: Stable. Follow-up with endocrinology as scheduled (6) Tobacco abuse: Plan: Smoking cessation recommended. Nicotine patch while hospitalized Plan Home today, March 15. He will remain off lisinopril and hydrochlorothiazide until he is seen by his PCP. Admission and Anticipated Discharge Date Admission Date: March 14, 2024 Subjective The patient apparently had a syncopal episode at home and fell due to orthostasis. Lisinopril and hydrochlorothiazide are temporarily on hold. He states he has minimal back pain at this time and wants to go home. Review of Systems 2 Review of Systems: Constitutionalno fever or chills ENTno blurred vision, no double vision, no epistaxis, no sore throat Respiratoryno cough, no wheezing, no shortness of breath Cardiacno palpitations, no chest pain, no syncope Tae nausea, vomiting, diarrhea, melena, hematochezia GUno urinary retention, no urinary incontinence, no dysuria, no hematuria Musculoskeletalno joint pain, no muscle tenderness. Mild thoracic discomfort Skinno bruising, no rashes, no pruritus Neurono isolated weakness, no paresthesia, no weakness Psychno depression, no anxiety Physical Exam 2 Physical Exam: General-alert and oriented x3, no fever, no chills HEENT-head atraumatic and normocephalic, pupils equal and reactive to light, extraocular muscles intact Neck-no lymphadenopathy or thyromegaly, trachea midline Chest-clear to auscultation. No rales, wheezing or rhonchi Cardiac-regular rate and rhythm, normal S1 and S2 Abdomen-normal bowel sounds, no hepatosplenomegaly Extremities-no cyanosis, clubbing, or edema Neuro-cranial nerves II through XII intact, motor and sensory function within normal limits, strength symmetrical, no focal deficits Psych-normal affect, normal mood Results & Data Results & Data Vital Signs (Past 12 Hours) Vital Signs Temp Pulse Resp BP Pulse Ox O2 Del Method 03/15/24 08:17 36.8 C 87 20 90/55 L 92 Room Air 03/15/24 02:00 36.6 C 67 16 93/60 L 94 Room Air 03/14/24 23:23 36.6 C 73 16 98/67 L 95 Room Air Laboratory Results 03/14/24 12:14 03/14/24 12:14 PG Care Time/CCT Total # of Minutes Spent Total Time Spent with Patient: Total time spent is greater than 50% in coordination of care (as documented) at patient's floor/unit and/or counseling patient: Coding Level of Care Code 57692 SUB INP/OBS CARE 3/50MIN Diagnoses Syncope and collapse R55 Back pain M54.50 Back pain laterality: unspecified Back pain location: low back pain Chronicity: acute Sciatica presence: unspecified whether sciatica present Atrial fibrillation, permanent I48.21 Ulcerative colitis K51.90 Graves disease E05.00 Tobacco abuse Z72.0 (2) Back pain Back pain laterality: unspecified Back pain location: low back pain C hronicity: acute Sciatica presence: unspecified whether sciatica present Qualified Code(s): M54.50 - Low back pain, unspecified
--- NOTE | 2024-03-15 10:53 | Discharge Summary ---
Discharge Summary Date of Service March 15, 2024 Principal Dx & Hospital Course #1 = Principal Diagnosis (1) Syncope and collapse: Appears to be orthostatic in nature. Lisinopril and hydrochlorothiazide are temporarily on hold. He is anxious to go home (2) Back pain: Acute T12 compression fracture. The patient has minimal symptoms at this time. This will eventually heal on its own. No treatment necessary at this time. (3) Atrial fibrillation, permanent: H/o A-fib, on Eliquis. Rate controlled with metoprolol tartrate. Follows with cardiology Dionna Tellez (4) Ulcerative colitis: Stable. Continue sulfasalazine (5) Graves disease: Stable. Follow-up with endocrinology as scheduled (6) Tobacco abuse: Smoking cessation recommended. Nicotine patch while hospitalized Plan Home today, March 15. He will remain off lisinopril and hydrochlorothiazide until he is seen by his PCP. Admission HPI Per Admitting Provider 73-year-old male presenting via private vehicle after a syncopal event at his home. He is on Eliquis for A-fib. Found to have T12 vertebral body fracture. ED course: CBC-WBC 9.77, H&H 13.7/41.1; CMP- Na 135 (corrected 136), glucose 141, chloride 99, creatinine 1.57, BUN 35, GFR 46.83; troponin 24.7; UA without signs of infection; CTAP T12 vertebral body fracture with 60% loss of height, otherwise unremarkable, which correlates with findings on chest x-ray, head CT and CTA chest. EKG shows A-fib at 73 bpm. Patient is 73-year-old male presenting for syncopal episode. Patient presents with his who helps to provide most of the history. Patient's states that this a.m. between [id number] the patient had a cramp in his left leg that he massaged out, then moments later he walked to the bathroom and she heard a thud. She witnessed the patient on the floor of the bathroom with his head propped up against the wall. She notes that the patient did not have any involuntary movements and did not lose control of bowel or bladder. Patient awoke within moments, and then took a nap after this incident prior to coming to the ED. He states the only thing he remembers is feeling as though his vision was darkening and then he woke up on the ground. Denies chest pain, shortness of breath, abdominal pain, sweating, or additional symptoms prior to the event. No postictal state following awakening. His also informs me that an illness identical event had happened to the patient on October 22, 2023. States that he had a cramp in his right leg, massaged it out, and then walked to the restroom where he then passed out and woke up on the floor moments later. States that he had a complete workup from manager, PCP, and neurologist. Changes that were made after this event included a decrease in his metoprolol. His neurologist completed 2 separate EEGs both of which were negative for seizure. 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 Additionally he did not have another episode until today. Denies current fever/chills, chest pain, shortness of breath, palpitations, abdominal pain, N/V/D/C, numbness or tingling, headache, vision changes, or swelling of the extremities. Only complaint at this time is that he is having back pain near the area of the fracture and neck stiffness because of the hospital bed. Please see Dr. Peña's attestation for adjustments/additions to treatment plan. Discharge Exam General-alert and oriented x3, no fever, no chills HEENT-head atraumatic and normocephalic, pupils equal and reactive to light, extraocular muscles intact Neck-no lymphadenopathy or thyromegaly, trachea midline Chest-clear to auscultation. No rales, wheezing or rhonchi Cardiac-regular rate and rhythm, normal S1 and S2 Abdomen-normal bowel sounds, no hepatosplenomegaly Extremities-no cyanosis, clubbing, or edema Neuro-cranial nerves II through XII intact, motor and sensory function within normal limits, strength symmetrical, no focal deficits Psych-normal affect, normal mood Discharge Plan Discharge Items Patient Disposition: Home - Self-Care Reason For Visit: SYNCOPAL EVENT Discharge Diagnosis: Syncope due to orthostatic hypotension, mechanical fall with acute T12 compression fracture Activity: Resume your previous activity Non-emergency contact: Primary Care Provider Call non-emergency contact if: your symptoms worsen Follow-up/Referrals: Jane Daigle DO [Primary Care Provider] - Diet: Regular and Heart Healthy Addtl Attending Provider Instructions: Lisinopril and hydrochlorothiazide are temporarily on hold until you are seen by your primary care provider. Oxycodone pain medication sent to your pharmacy if you need it Pending Studies at Discharge: No Stand-Alone Forms: My [facility], Smoking Cessation Medications and DC Order Prescriptions: New oxycodone 5 mg Tablet 5 mg PO Q4H PRN (Reason: pain) Qty: 10 0RF Continued meclizine 25 mg tablet 25 mg PO UD PRN (Reason: Vertigo) Patient Comments: 25 mg PO 1 TABLET BY MOUTH UP TO 3 TIMES DAILY NEEDED FOR DIZZINESS; Rx Instructions: 25 mg PO 1 TABLET BY MOUTH UP TO 3 TIMES DAILY NEEDED FOR DIZZINESS; apixaban 5 mg tablet 5 mg PO BID Qty: 180 3RF calcium carbonate [Calcium 600] 600 mg calcium (1,500 mg) tablet 600 mg PO DAILY Qty: 30 0RF atorvastatin 10 mg tablet 10 mg PO QAM Qty: 90 3RF sertraline [Zoloft] 50 mg tablet 50 mg PO HS Qty: 30 3RF folic acid 1 mg tablet 1 mg PO QAM Qty: 30 Rx Instructions: Last filled 01/2023 cyanocobalamin (vitamin B-12) 1,000 mcg tablet 1,000 mcg PO QAM hydroxyzine HCl 10 mg tablet 10 mg PO TID PRN (Reason: anxiety) Qty: 90 0RF cholecalciferol (vitamin D3) [Vitamin D3] 125 mcg (5,000 unit) Tablet 125 mcg PO QAM metoprolol tartrate 50 mg tablet 25 mg PO BID sulfasalazine 500 mg tablet 2,000 mg PO BID Rx Instructions: give with food (meal/snack) Discontinued lisinopril 30 mg tablet 30 mg PO QAM Qty: 90 3RF hydrochlorothiazide 25 mg tablet 25 mg PO QAM Qty: 90 3RF Discharge Orders: Discharge Order (Routine); Ordered 03/15/24 Ordered By: Jose Rafael Vela Admission Data Admit Date/Time: 03/14/24 15:40 Attending Provider: Jose Rafael Vela Admit Provider: Royer Peña Primary Care Provider: Jane Daigle Other Providers: Royer Peña Hospital Stay Data Consultations 03/14/24 14:00 ED Decision to Admit Stat Diagnostic Imagining Performed 03/14/24 12:11 CT abd pelvis IV con only Stat CT angio chest PE protocol Stat CT cervical spine wo con Stat CT head/brain wo con Stat Pending Results Patient Have Any Pending Studies at Discharge: No Discharge Instructions Given to Patient (Per Discharging Provider) Lisinopril and hydrochlorothiazide are temporarily on hold until you are seen by your primary care provider. Oxycodone pain medication sent to your pharmacy if you need it Total Time Total Time Spent Total Time Spent (In Minutes): 50 minutes Coding Level of Care Code 93103 INP/OBS DISCH >30 MIN Diagnoses Syncope and collapse R55 Back pain M54.50 Back pain laterality: unspecified Back pain location: low back pain Chronicity: acute Sciatica presence: unspecified whether sciatica present Atrial fibrillation, permanent I48.21 Ulcerative colitis K51.90 Graves disease E05.00 Tobacco abuse Z72.0
[2024-03-15 11:06] VITALS: PULSE 70
--- NOTE | 2024-03-15 11:28 | Communication Note ---
Date of Service: March 15, 2024 By CMS guidelines, a determination that the admission or continued stay is not medically necessary has been made by a member of the UR committee and adelfo donald for this hospital stay, therefore a Code 44 will be completed and the Inpatient admission will be changed to outpatient.
--- NOTE | 2024-03-15 11:32 | Communication Note ---
Date of Service: March 15, 2024 By CMS guidelines, a determination that the admission or continued stay is not medically necessary has been made by a member of the UR committee and a ph ysician for this hospital stay, therefore a Code 44 will be completed and the Inpatient admission will be changed to outpatient.
[2024-03-15 11:53] VITALS: BP 113/74; O2SAT 93
== END 2024-03-15 13:26 | disposition home or self-care (01) | DRG 552 ==
LOC: ED 11:44 → SUATTDRO 15:40 → 2N 15:40